=== PATIENT | female | born 2000 | race Caucasian/White ===

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

== ENCOUNTER 2019-11-15 10:34 | Emergency (ER) | payer MEDICAID ==
[~2019-11-15] VITALS: Ht 157.5 cm; Wt 85.3 kg
[2019-11-15 10:47] VITALS: Ht 157.5 cm; Wt 85.3 kg
[2019-11-15 11:44] LABS: CALCIUM 8.4 mg/dL (8.5-10.1); CARBON DIOXIDE 28.2 mmol/L (21-32); CHLORIDE SERUM 99 mmol/L (98-107); CREATININE SERUM 0.7 mg/dL (0.6-1.0); GFR1 > 60 mL/min; GLUCOSE SERUM 307 mg/dL (74-106); POTASSIUM SERUM 3.9 mmol/L (3.5-5.1); SODIUM SERUM 135 mmol/L (136-145)
[2019-11-15 11:48] LABS: ALKALINE PHOSPHATASE 97 U/L (46-116); ALT/SGPT 88 U/L (14-59); AST/SGOT 25 U/L (15-37); BILIRUBIN TOTAL 0.4 mg/dL (0.20-1.00); CHOLESTEROL 172 mg/dL (<200); LIPASE 153 IU/L (73-393); TOTAL PROTEIN, SERUM 7.1 g/dL (6.4-8.2)
[2019-11-15 12:17] LABS: microscopic required? NO
[2019-11-15 12:45] LABS: UA SPECIFIC GRAVITY 1.025 (1.005-1.035); urine erythrocyte NEGATIVE (NEGATIVE)
[2019-11-15 13:10] LABS: PLATELET COUNT 291 x10^3mcL (130-400); RED CELL DISTRIBUTION WIDTH 13.6 % (11.5-14.5)
[2019-11-15 13:11] LABS: BASOPHIL % 0.4 % (0-2)
[2019-11-15 13:40] LABS: AMPHETAMINE QUAL UR NONE DETECTED (See below)
[2019-11-15 13:58] VITALS: BP 117/97
== END 2019-11-15 13:58 | disposition home or self-care (01) ==
LOC: ED 10:34
PROVIDERS: Emergency Medicine
DX: S00.83XA Contusion of other part of head, initial encounter (principal); G93.0 Cerebral cysts; E11.65 Type 2 diabetes mellitus with hyperglycemia; R11.0 Nausea; H57.89 Other specified disorders of eye and adnexa; E66.9 Obesity, unspecified; Z68.34 Body mass index [BMI] 34.0-34.9, adult; V89.0XXA Person injured in unspecified motor-vehicle accident, nontraffic, initial encounter; Y93.89 Activity, other specified; Y92.488 Other paved roadways as the place of occurrence of the external cause; Y99.8 Other external cause status
CPT/HCPCS: 82962; G0480; J1815; J7030

== ENCOUNTER 2020-04-11 18:25 | Emergency (ER) | payer OTHER, MEDICAID ==
[~2020-04-11] VITALS: Ht 165.1 cm; Wt 79.3 kg
[2020-04-11 18:50] VITALS: Ht 165.1 cm; Wt 79.3 kg
[2020-04-11 23:10] LABS: UA SPECIFIC GRAVITY 1.025 (1.005-1.035); microscopic required? YES; urine erythrocyte 1+ (NEGATIVE)
[2020-04-11 23:35] VITALS: BP 120/76
== END 2020-04-11 23:35 | disposition home or self-care (01) ==
LOC: ED 18:25
PROVIDERS: Emergency Medicine
DX: N76.0 Acute vaginitis (principal)
CPT/HCPCS: 82962; 87491; 87591